=== PATIENT | female | born 1995 | race Caucasian/White ===

== ENCOUNTER 2018-04-09 14:30 | Emergency (ER) | payer SELFPAY ==
[2018-04-09] MEDS ORDERED: MAG HYDROX/AL HYDROX/SIMETH SUSP 30 ML UDCUP PO ONE (14:44)
[2018-04-09] MEDS ORDERED: LIDOCAINE 2% VISCOUS SOLN 20 ML UDCUP PO ONE (14:44)
[2018-04-09] MEDS ORDERED: METOCLOPRAMIDE HCL ORAL SOLN 10 MG/10 ML UDCUP PO ONE (14:44)
--- NOTE | 2018-04-09 14:50 | ER Document Report ---
ED Medical Screen (RME) - General Chief Complaint: Sore Throat Stated Complaint: SORE THROAT Time Seen by Provider: 04/09/18 14:38 TRAVEL OUTSIDE OF THE [place] IN LAST 30 DAYS: No - HPI Notes: 04/09/18 14:45 Patient is a 22-year-old female who presents to the ED complaining of feeling feverish, nasal congestion/discharge, postnasal drip, sore throat 1 day. Patient also reports having pain in her epigastrium when she eats, and intermittent diarrhea over the last several days. Patient states that she did have a dental procedure done about a week ago, but had 2 rounds of clindamycin. Patient states that she did well with her first round of clindamycin, but started having abdominal pain 2 days into her second round so she stopped taking it. Patient states that she has had a significant decrease in p.o. intake and believes that she has been losing weight as well. She did have 1 episode of vomiting previously, but not today. She is otherwise urinating normally. Denies any other significant past medical history. Denies any headache, fever, head injury, neck pain, URI, sore throat, chest pain, palpitations, syncope, cough, shortness of breath, wheeze, dyspnea, urinary retention, dysuria, hematuria, back pain, loss of control of bowel or bladder, numbness/tingling, muscle paralysis/weakness, or rash. I have treated and performed a rapid initial assessment of this patient. A comprehensive ED assessment and evaluation of the patient, analysis of test results and completion of medical decision making process will be conducted by additional ED providers. PHYSICAL EXAMINATION: GENERAL: Well-appearing, well-nourished and in no acute distress. A&Ox4. Answers questions appropriately. Moves comfortably w/o notable distress HEAD: Atraumatic, normocephalic. EYES: Pupils equal round and reactive to light, extraocular movements intact, sclera anicteric, conjunctiva are normal. ENT: oropharynx mild erythema without exudates. 1+ tonsilar hypertrophy without erythema or exudate. No palatine shift. Uvula midline. No tongue protrusion. No drooling, hoarseness, or airway compromise. Moist mucous membranes. No sinus tenderness. NECK: Normal range of motion, supple without lymphadenopathy. No rigidity/ meningismus. LUNGS: Breath sounds clear to auscultation bilaterally and equal. No wheezes rales or rhonchi. No retractions HEART: Regular rate and rhythm without murmurs, rubs, gallops. ABDOMEN: Soft, nondistended abdomen. No guarding, no rebound. No masses appreciated. Normal bowel sounds present. No CVA tenderness bilaterally. + mild epigastric tenderness and tenderness to the mid left abdomen. Aguilar neg. No tenderness at Mc[place]. PSYCH: Normal mood, normal affect. SKIN: Warm, Dry, normal turgor, no rashes or lesions noted. - Related Data Allergies/Adverse Reactions: Penicillins Allergy (Verified 04/09/18 14:31) Past Medical History GI Medical History: Reports: Hx Gastroesophageal Reflux Disease - Immunizations Hx Diphtheria, Pertussis, Tetanus Vaccination: Yes
[2018-04-09 15:26] LABS: APPEARANCE,URINE SLIGHTLY-CLOUDY; BILIRUBIN,URINE NEGATIVE (NEGATIVE); COLOR,URINE YELLOW; GLUCOSE, URINE NEGATIVE (NEGATIVE); KETONES,URINE NEGATIVE (NEGATIVE); LEUKOCYTE ESTERASE,URINE NEGATIVE (NEGATIVE); NITRITE,URINE NEGATIVE (NEGATIVE); PROTEIN,URINE NEGATIVE (NEGATIVE); URINE SPECIFIC GRAVITY 1.025
--- NOTE | 2018-04-09 15:27 | ER Document Report ---
ED General - General Chief Complaint: Sore Throat Stated Complaint: SORE THROAT Time Seen by Provider: 04/09/18 14:38 Mode of Arrival: Ambulatory Information source: Patient TRAVEL OUTSIDE OF THE [place] IN LAST 30 DAYS: No - Related Data Allergies/Adverse Reactions: Penicillins Allergy (Verified 04/09/18 14:31) Past Medical History - Social History Smoking Status: Former Smoker Chew tobacco use (# tins/day): No Frequency of alcohol use: Rare Drug Abuse: None Family History: Reviewed & Not Pertinent Patient has suicidal ideation: No Patient has homicidal ideation: No Renal/ Medical History: Denies: Hx Peritoneal Dialysis GI Medical History: Reports: Hx Gastroesophageal Reflux Disease Past Surgical History: Reports: Hx Oral Surgery - root canal and extranction - Immunizations Hx Diphtheria, Pertussis, Tetanus Vaccination: Yes Course - Laboratory Result Diagrams: 04/09/18 15:00 04/09/18 15:00
[2018-04-09 15:30] LABS: ABSOLUTE EOSINOPHILS # (AUTO) 0.1 10^3/uL (0.0-0.6); ABSOLUTE LYMPHOCYTES (AUTO) 1.3 10^3/uL (0.5-4.7); ABSOLUTE MONOCYTES (AUTO) 0.5 10^3/uL (0.1-1.4); ABSOLUTE NEUT (AUTO) 6.3 10^3/uL (1.7-8.2); BASOPHILS % (AUTO) 0.5 % (0-2); HEMATOCRIT 38.3 % (36.0-47.0); HEMOGLOBIN 12.7 g/dL (12.0-15.5); LYMPHOCYTES % (AUTO) 15.5 % (13-45); MEAN CORPUSCULAR HEMOGLOBIN 28.7 pg (27.0-33.4); MEAN CORPUSCULAR HGB CONC 33.2 g/dL (32.0-36.0); MEAN CORPUSCULAR VOLUME 87 fl (80-97); MONOCYTES % (AUTO) 5.8 % (3-13); PLATELET COUNT 212 10^3/uL (150-450); RED BLOOD COUNT 4.43 10^6/uL (3.72-5.28); RED CELL DISTRIBUTION WIDTH 14.9 % (11.5-14.0); SEGMENTED NEUTROPHILS % (AUTO) 77.2 % (42-78); TOTAL CELLS COUNTED % (AUTO) 100 %; WHITE BLOOD COUNT 8.2 10^3/uL (4.0-10.5)
[2018-04-09] MEDS ORDERED: LANSOPRAZOLE 30 MG TAB.RAP.DR PO ONE (15:38)
[2018-04-09 15:53] LABS: ALANINE AMINOTRANSFERASE 15 U/L (9-52); ALBUMIN 4.6 g/dL (3.5-5.0); ALKALINE PHOSPHATASE 69 U/L (38-126); ANION GAP 14 (5-19); ASPARTATE AMINO TRANSFERASE 16 U/L (14-36); BILIRUBIN,DIRECT 0.3 mg/dL (0.0-0.4); BILIRUBIN,TOTAL 0.3 mg/dL (0.2-1.3); BLOOD UREA NITROGEN 13 mg/dL (7-20); CALCIUM 9.8 mg/dL (8.4-10.2); CARBON DIOXIDE 26 mmol/L (22-30); CHLORIDE 106 mmol/L (98-107); GLUCOSE 120 mg/dL (75-110); LIPASE 33.1 U/L (23-300); SODIUM 145.6 mmol/L (137-145); TOTAL PROTEIN 7.6 g/dL (6.3-8.2)
--- NOTE | 2018-04-09 15:56 | RADIOLOGY REPORT (SQ) ---
EXAM DESCRIPTION: CHEST SINGLE VIEW COMPLETED DATE/TIME: 04/09/2018 3:38 pm REASON FOR STUDY: epigastric pain COMPARISON: 10/13/2015 EXAM PARAMETERS: NUMBER OF VIEWS: One view. TECHNIQUE: Single frontal radiographic view of the chest acquired. RADIATION DOSE: NA LIMITATIONS: None. FINDINGS: LUNGS AND PLEURA: No opacities, masses or pneumothorax. No pleural effusion. MEDIASTINUM AND HILAR STRUCTURES: No masses. Contour normal. HEART AND VASCULAR STRUCTURES: Heart normal in size. Normal vasculature. BONES: No acute findings. HARDWARE: None in the chest. OTHER: No other significant finding. IMPRESSION: NO ACUTE RADIOGRAPHIC FINDING IN THE CHEST. TECHNICAL DOCUMENTATION: JOB ID: [id number] [employer]- All Rights Reserved Reading location - IP/workstation name: [email or web address]
--- NOTE | 2018-04-09 16:14 | ER Document Report ---
ED GI/ - General Chief Complaint: Sore Throat Stated Complaint: SORE THROAT Time Seen by Provider: 04/09/18 14:38 Mode of Arrival: Ambulatory Information source: Patient Notes: 22-year-old female came to the emergency room today because of epigastric left upper quadrant abdominal pain. It hurts when she eats food. She has had some weight loss due to not eating. She is a history of GERD but has recently taken clindamycin for a dental infection and dental procedures. 3 days into the second round of clindamycin she had to stop it. She has had some diarrhea without blood or black in it. No history of Clostridium difficile. No history of gastritis, pancreatitis, cholecystitis, Crohn's, colitis, or diverticulitis. She is on her menses at this time. She also has a mild sore throat and wants to know if she is strep throat. No cough, chest pain or shortness of breath. No rash. TRAVEL OUTSIDE OF THE [place] IN LAST 30 DAYS: No - Related Data Allergies/Adverse Reactions: Penicillins Allergy (Verified 04/09/18 14:31) Past Medical History - General Information source: Patient - Social History Smoking Status: Former Smoker Chew tobacco use (# tins/day): No Frequency of alcohol use: Rare Drug Abuse: None Family History: Reviewed & Not Pertinent Patient has suicidal ideation: No Patient has homicidal ideation: No Renal/ Medical History: Denies: Hx Peritoneal Dialysis GI Medical History: Reports: Hx Gastroesophageal Reflux Disease Past Surgical History: Reports: Hx Oral Surgery - root canal and extranction - Immunizations Hx Diphtheria, Pertussis, Tetanus Vaccination: Yes Review of Systems - Review of Systems Constitutional: No symptoms reported EENT: See HPI Cardiovascular: No symptoms reported Respiratory: No symptoms reported Gastrointestinal: See HPI Genitourinary: No symptoms reported Female Genitourinary: No symptoms reported Musculoskeletal: No symptoms reported Skin: No symptoms reported Hematologic/Lymphatic: No symptoms reported Neurological/Psychological: No symptoms reported Physical Exam - Vital signs Vitals: Temp Pulse Resp BP Pulse Ox 99.4 F 105 H 16 137/97 H 98 04/09/18 14:34 04/09/18 14:34 04/09/18 14:34 04/09/18 14:34 04/09/18 14:34 Interpretation: Normal - General General appearance: Appears well, Alert - HEENT Head: Normocephalic, Atraumatic Eyes: Normal Pupils: PERRL Mucous membranes: Normal Pharynx: Normal Neck: Supple. No: Lymphadenopathy, Thyromegally - Respiratory Respiratory status: No respiratory distress Chest status: Nontender Breath sounds: Normal Chest palpation: Normal - Cardiovascular Rhythm: Regular Heart sounds: Normal auscultation Murmur: No - Abdominal Inspection: Normal Distension: No distension Bowel sounds: Normal Tenderness: Tender - Epigastric left upper quadrant mild Organomegaly: No organomegaly - Back Back: Normal, Nontender. No: CVA tenderness - Extremities General upper extremity: Normal inspection, Nontender, Normal color, Normal ROM , Normal temperature General lower extremity: Normal inspection, Nontender, Normal color, Normal ROM , Normal temperature, Normal weight bearing. No: Chuck's sign - Neurological Neuro grossly intact: Yes Cognition: Normal Orientation: AAOx4 [place] Coma Scale Eye Opening: Spontaneous [place] Coma Scale Verbal: Oriented [place] Coma Scale Motor: Obeys Commands [place] Coma Scale Total: 15 Speech: Normal Motor strength normal: LUE, RUE, LLE, RLE Sensory: Normal - Psychological Associated symptoms: Normal affect, Normal mood - Skin Skin Temperature: Warm Skin Moisture: Dry Skin Color: Normal Skin irregularity: negative: Rash Course - Re-evaluation Re-evalutation: 04/09/18 15:20 The patient is very hungry the GI cocktail relieved all of the symptoms. She is to take Nexium but she has not taken it for several years. 04/09/18 16:15 Labs and CXR are negative. Patient was unable to have a bowel movement here so the C. difficile was not obtained. TSH is pending I will have her call me back for the results 04/09/18 16:15 04/09/18 16:18 Was able to eat food. - Vital Signs Vital signs: Temp Pulse Resp BP Pulse Ox 99.4 F 105 H 16 137/97 H 98 04/09/18 14:34 04/09/18 14:34 04/09/18 14:34 04/09/18 14:34 04/09/18 14:34 - Laboratory Result Diagrams: 04/09/18 15:00 04/09/18 15:00 Laboratory results interpreted by me: 04/09/18 04/09/18 04/09/18 15:00 15:00 15:08 RDW 14.9 H Sodium 145.6 H Glucose 120 H Urine Blood LARGE H Urine Urobilinogen 2.0 H Discharge - Discharge Clinical Impression: Gastritis, Esophagitis, Sore throat Diarrhea Qualifiers: Diarrhea type: unspecified type Qualified Code(s): R19.7 - Diarrhea, unspecified Condition: Good Disposition: HOME, SELF-CARE Instructions: Gastritis ([facility]), Prilosec (Acid Pump Inhibitor) ([facility]) Additional Instructions: tums take the nexium daily no alcohol no motrin no more clindamycin needed to er if worse Copy of all the labs and imaging given to you See the bobbin washer for evaluation Call me in 2 hours for the TSH result at [phone] Prescriptions: Esomeprazole Magnesium [Nexium] 20 mg PO DAILY #30 capsule.dr Forms: Return to Work Referrals: RICHARD RUIZ MD [ACTIVE STAFF] - Follow up as needed
[2018-04-09 16:26] VITALS: BP 111/69
== END 2018-04-09 16:28 | disposition home or self-care (01) ==
LOC: ER 14:30
DX: K29.70 Gastritis, unspecified, without bleeding (principal); K20.9 Esophagitis, unspecified; J02.9 Acute pharyngitis, unspecified; R19.7 Diarrhea, unspecified; R10.13 Epigastric pain; R10.12 Left upper quadrant pain; Z87.891 Personal history of nicotine dependence
CPT/HCPCS: 99283; 36415; 87070; 87880; 83690; 84443; 85025; 81025; 80053; 81001; 71045; J3490

== ENCOUNTER 2018-06-15 16:48 | Emergency (ER) | payer OTHER ==
[2018-06-15 16:54] VITALS: BP 127/92
[2018-06-15] MEDS ORDERED: HYDROCODONE/ACETAMINOPHEN 5-325 MG TABLET PO ONE (18:07)
--- NOTE | 2018-06-15 18:10 | ER Document Report ---
ED Burn/Smoke/Toxic Fumes - General Chief Complaint: Hand Burn Stated Complaint: GREASE BURN Time Seen by Provider: 06/15/18 17:53 Mode of Arrival: Ambulatory Information source: Patient Notes: 22-year-old female presented ED for complaint of second-degree kimble to her right hand. She states she was at work when grease splattered on her hands burning her right hand including most of her fingers worse on the index finger. TRAVEL OUTSIDE OF THE [place] IN LAST 30 DAYS: No - HPI Patient complains to provider of: Burn Onset: Just prior to arrival Where: Work Quality of pain: Burning, Sharp, Throbbing Severity: Severe Pain Level: 5 Context: Hot liquid - Hot grease Associated Symptoms: Other - Second-degree kimble to the right hand to include the fingers. There were no circumferential kimble Other injuries: Other - Right hand - Related Data Allergies/Adverse Reactions: Penicillins Allergy (Verified 06/15/18 16:49) Past Medical History - General Information source: Patient - Social History Smoking Status: Never Smoker Cigarette use (# per day): No Chew tobacco use (# tins/day): No Smoking Education Provided: No Frequency of alcohol use: Rare Drug Abuse: None Lives with: Spouse/Significant other Family History: Reviewed & Not Pertinent Patient has suicidal ideation: No Patient has homicidal ideation: No - Past Medical History Cardiac Medical History: Reports: None Pulmonary Medical History: Reports: None EENT Medical History: Reports: None Neurological Medical History: Reports: None Endocrine Medical History: Reports: None Renal/ Medical History: Reports: None Malignancy Medical History: Reports: None GI Medical History: Reports: Hx Gastroesophageal Reflux Disease Musculoskeletal Medical History: Reports None Skin Medical History: Reports None Psychiatric Medical History: Reports: None Traumatic Medical History: Reports: None Infectious Medical History: Reports: None Past Surgical History: Reports: Hx Oral Surgery - root canal and extranction - Immunizations Hx Diphtheria, Pertussis, Tetanus Vaccination: Yes Review of Systems - Review of Systems Constitutional: No symptoms reported EENT: No symptoms reported Cardiovascular: No symptoms reported Respiratory: No symptoms reported Gastrointestinal: No symptoms reported Genitourinary: No symptoms reported Female Genitourinary: No symptoms reported Musculoskeletal: Other - Kimble to the right hand to include the fingers. Worse burn is on the index finger. Skin: Other - Kimble to the right hand Hematologic/Lymphatic: No symptoms reported Neurological/Psychological: No symptoms reported Physical Exam - Vital signs Vitals: Temp Pulse Resp BP Pulse Ox 98.8 F 104 H 18 127/92 H 99 06/15/18 16:51 06/15/18 16:51 06/15/18 16:51 06/15/18 16:51 06/15/18 16:51 Interpretation: Normal - General General appearance: Appears well, Alert - HEENT Head: Normocephalic, Atraumatic Eyes: Normal Pupils: PERRL - Respiratory Respiratory status: No respiratory distress Chest status: Nontender Breath sounds: Normal Chest palpation: Normal - Cardiovascular Rhythm: Regular Heart sounds: Normal auscultation Murmur: No - Abdominal Inspection: Normal Distension: No distension Bowel sounds: Normal Tenderness: Nontender Organomegaly: No organomegaly - Back Back: Normal, Nontender - Extremities General upper extremity: Normal temperature General lower extremity: Normal inspection, Nontender, Normal color, Normal ROM , Normal temperature, Normal weight bearing. No: Chuck's sign Hand: Tender, No evidence of human bite, No evidence of FB, Swelling, Other - Second-degree kimble to the right hand and second third and fourth finger there are blisters. There are no circumferential kimble. - Neurological Neuro grossly intact: Yes Cognition: Normal Orientation: AAOx4 [place] Coma Scale Eye Opening: Spontaneous [place] Coma Scale Verbal: Oriented Manisha Coma Scale Motor: Obeys Commands [place] Coma Scale Total: 15 Speech: Normal Motor strength normal: LUE, RUE, LLE, RLE Sensory: Normal - Psychological Associated symptoms: Normal affect, Normal mood - Skin Skin Temperature: Warm Skin Moisture: Dry Skin Color: Normal Location of irregularity: Extremities - Kimble to the right hand worse on the index finger but has kimble when second third and fourth finger. There are blisters on the second and fourth finger. There are no circumferential kimble. Course - Re-evaluation Re-evalutation: 06/15/18 20:53 Dr. Perez consulted for this second-degree burn to the right hand. He stated patient could be discharged home with Silvadene cream and dressings. Patient was ordered Silvadene cream for her right hand with dressings and narcotics. Patient had been given instructions on range of motion for the index finger due to the extent of the injury to her index finger. Patient was instructed to use her narcotics and then to do range of motion is to the finger. Dr. English reviewed exercises for the finger with her to ensure that she was able to do the exercises. Patient was instructed to return to the ED for any increase in pain inflammation or swelling or any other concerns. - Vital Signs Vital signs: Temp Pulse Resp BP Pulse Ox 98.8 F 104 H 18 127/92 H 99 06/15/18 16:51 06/15/18 16:51 06/15/18 16:51 06/15/18 16:51 06/15/18 16:51 Discharge - Discharge Clinical Impression: grease burn to right hand 2nd degree Condition: Stable Disposition: HOME, SELF-CARE Instructions: Family Physicians / Practices, Use of Pbiu-Vsy-Vxhlgne Ibuprofen ([facility]) Additional Instructions: Kimble The seriousness of a burn is not always obvious at first. Delayed tissue damage and secondary infection may occur despite proper treatment. Proper care is very important. A burn that is third-degree may need skin grafting. Most kimble, however, are simply protected with dressings until healed. Keep the burn clean. If the dressing gets wet, remove it and blot the wound dry, then apply a fresh dressing. Dressings should be changed at least once daily. Soaks to remove crusting are usually started in about two days. Kimble in certain areas require stretching to prevent disabling tightness. Your doctor will advise you about this. For pain control, you may frequently apply a hand towel that has been dipped in water with ice cubes. Do not apply ice directly to the burned areas. If any signs of infection occur (swelling, redness, increasing tenderness, red streaks, tender lumps in the armpit or groin above the burn, or fever), contact the doctor immediately. Silvadene Cream Silvadene is very effective against the germs that cause infection within the skin. It is used to prevent infection in burn injuries. Apply the medicine once or twice a day, as prescribed, for one week, or longer if your doctor has advised it. Stop the medicine and call your doctor if you develop large blisters, severe itching, increasing pain, swelling, fever, or spreading redness. Oral Narcotic Medication You have been given a prescription for pain control. This medication is a narcotic. It's best taken with food, as nausea can result if taken on an empty stomach. Don't operate machinery or drive within six hours of taking this medication. Do not combine this medicine with alcohol, or with any medication which can cause sedation (such as cold tablets or sleeping pills) unless you get permission from the physician. Narcotics tend to cause constipation. If possible, drink plenty of fluids and eat a diet high in fiber and fruits. FOLLOW-UP CARE: If you have been referred to a physician for follow-up care, call the physician s office for an appointment as you were instructed or within the next two days. If you experience worsening or a significant change in your symptoms, notify the physician immediately or return to the Emergency Department at any time for re-evaluation. Please return to the ED in 48-72 hours to have the hand reexamined to ensure that it is improving or sooner for any increase in pain inflammation or signs or symptoms of infection to include fever. Do not pop the blisters or your hand. Prescriptions: Hydrocodone/Acetaminophen [[place] 5-325 mg Tablet] 1 tab PO Q6HP PRN #12 tablet PRN Reason: For Pain Scale 3-5 Forms: Elevated Blood Pressure, Return to Work
[2018-06-15] MEDS ORDERED: SILVER SULFADIAZINE 1% CREAM 400 GM TP ONE (18:30)
[2018-06-16] MEDS ORDERED: SILVER SULFADIAZINE 1% CREAM 400 GM TP ONE (18:06)
== END 2018-06-15 18:46 | disposition home or self-care (01) ==
LOC: ER 16:48
DX: T23.231A Burn of second degree of multiple right fingers (nail), not including thumb, initial encounter (principal); X12.XXXA Contact with other hot fluids, initial encounter; Y99.0 Civilian activity done for income or pay; Z88.0 Allergy status to penicillin
CPT/HCPCS: 99283

== ENCOUNTER 2018-06-18 12:22 | Emergency (ER) | payer OTHER ==
--- NOTE | 2018-06-18 13:12 | ER Document Report ---
ED Suture/Wound Recheck - General Chief Complaint: Burn Recheck Stated Complaint: WOUND RECHECK Time Seen by Provider: 06/18/18 13:05 Notes: Patient is a 22-year-old healthy female here for a recheck of a burn to her right hand. Patient burned her hand and hot grease at work 3 days ago. Patient has been changing her Silvadene dressings as instructed. Complains of fingers are swollen and difficult to bend but otherwise doing well. TRAVEL OUTSIDE OF THE [place] IN LAST 30 DAYS: No - HPI Treated in ED (days ago): 3 Previous ED treatment: Burn dressing Quality of pain: Achy Context: Work related Symptoms since procedure: No complaints Exacerbated by: Movement Relieved by: Denies - Related Data Allergies/Adverse Reactions: Penicillins Allergy (Verified 06/18/18 12:25) Past Medical History - General Information source: Patient - Social History Smoking Status: Current Every Day Smoker Frequency of alcohol use: None Drug Abuse: None Lives with: Family Family History: Reviewed & Not Pertinent - Medical History Medical History: Negative Renal/ Medical History: Denies: Hx Peritoneal Dialysis GI Medical History: Reports: Hx Gastroesophageal Reflux Disease Past Surgical History: Reports: Hx Oral Surgery - root canal and extranction - Immunizations Hx Diphtheria, Pertussis, Tetanus Vaccination: Yes Review of Systems - Review of Systems Constitutional: No symptoms reported EENT: No symptoms reported Cardiovascular: No symptoms reported Respiratory: No symptoms reported Gastrointestinal: No symptoms reported Genitourinary: No symptoms reported Female Genitourinary: No symptoms reported Musculoskeletal: No symptoms reported Skin: See HPI Hematologic/Lymphatic: No symptoms reported Neurological/Psychological: No symptoms reported Physical Exam - Vital signs Interpretation: Normal - General General appearance: Appears well, Alert - HEENT Head: Normocephalic, Atraumatic Eyes: Normal Pupils: PERRL - Respiratory Respiratory status: No respiratory distress Chest status: Nontender Breath sounds: Normal Chest palpation: Normal - Cardiovascular Rhythm: Regular Heart sounds: Normal auscultation Murmur: No - Abdominal Inspection: Normal Distension: No distension Bowel sounds: Normal Tenderness: Nontender Organomegaly: No organomegaly - Back Back: Normal, Nontender - Extremities General upper extremity: Normal inspection, Nontender, Normal color, Normal ROM , Normal temperature General lower extremity: Normal inspection, Nontender, Normal color, Normal ROM , Normal temperature, Normal weight bearing. No: Chuck's sign - Neurological Neuro grossly intact: Yes Cognition: Normal Orientation: AAOx4 [place]isha Coma Scale Eye Opening: Spontaneous [place]isha Coma Scale Verbal: Oriented [place] Coma Scale Motor: Obeys Commands Manisha Coma Scale Total: 15 Speech: Normal Motor strength normal: LUE, RUE, LLE, RLE Sensory: Normal - Psychological Associated symptoms: Normal affect, Normal mood - Skin Skin Temperature: Warm Skin Moisture: Dry Skin Color: Erythema - Erythema to right dorsal hand. Patient has a blister to right dorsal thumb over PIP, right dorsal middle finger and right dorsal ring finger. No signs of infection Discharge - Discharge Clinical Impression: Second degree burn of right hand Qualifiers: Encounter type: subsequent encounter Burn of hand location: multiple fingers excluding thumb Qualified Code(s): T23.231D - Burn of second degree of multiple right fingers (nail), not including thumb, subsequent encounter Condition: Stable Disposition: HOME, SELF-CARE Instructions: [place] ([facility]), Silvadene Cream ([facility]), Soap Cleansing ([facility]) Additional Instructions: [place]'s daily with antibacterial soap and water Change Silvadene dressing after each cleaning Try to keep blisters intact for as long as possible If blisters pop, do not remove the skin Follow-up with your employer's Worker's [employer]. provider for further evaluation and treatment
== END 2018-06-18 14:05 | disposition home or self-care (01) ==
LOC: ER 12:22
DX: T23.241D Burn of second degree of multiple right fingers (nail), including thumb, subsequent encounter (principal); X12.XXXD Contact with other hot fluids, subsequent encounter; F17.200 Nicotine dependence, unspecified, uncomplicated
CPT/HCPCS: 99282

== ENCOUNTER 2019-02-18 11:26 | Emergency (ER) | payer SELFPAY ==
[2019-02-18] MEDS ORDERED: NORMAL SALINE 1000 ML 1,000 ML IV ONE ×2 (12:08→16:34)
--- NOTE | 2019-02-18 12:08 | ER Document Report ---
ED Medical Screen (RME) - General Chief Complaint: Abdominal Pain Stated Complaint: ABDOMINAL PAIN Time Seen by Provider: 02/18/19 11:59 Mode of Arrival: Ambulatory Information source: Patient TRAVEL OUTSIDE OF THE [place] IN LAST 30 DAYS: No - HPI Patient complains to provider of: jimmie gonzalez Notes: 02/18/19 12:07 Patient here with complaints of left-sided abdominal pain. The patient states that she has had pain for about 1 week. She has had diarrhea and noticed some mucus in her stool that was dark today. No obvious blood in her stool. No nausea vomiting. No fever. No dysuria. She was on Zithromax a few weeks ago. No recent travel. No known sick contacts. No chronic abdominal disease, no known sick contacts. Exam Nontoxic, no distress. Lungs clear and equal. Heart sounds normal. Tenderness to palpation with guarding to the left upper and mid abdomen on limited triage abdominal exam. No CVA tenderness. Plan CBC, CMP, lipase, urine, urine , stool culture, C. difficile due to recent antibiotic use. Saline lock. CT abdomen pelvis with IV contrast. Patient declined needing pain medication at this time. An initial examination was made on the patient as part of the triage process, and it was determined a more comprehensive evaluation was necessary. Initial labs were ordered and patient was transferred to another provider in the ED who assumed care and finished evaluation and plan. - Related Data Allergies/Adverse Reactions: Penicillins Allergy (Verified 02/18/19 11:28) Past Medical History - Social History Chew tobacco use (# tins/day): No Frequency of alcohol use: None Drug Abuse: None Renal/ Medical History: Denies: Hx Peritoneal Dialysis GI Medical History: Reports: Hx Gastroesophageal Reflux Disease Past Surgical History: Reports: Hx Oral Surgery - root canal and extranction - Immunizations Hx Diphtheria, Pertussis, Tetanus Vaccination: Yes Physical Exam - Vital signs Vitals: Temp Pulse Resp BP Pulse Ox 98.4 F 107 H 14 133/80 H 98 02/18/19 11:31 02/18/19 11:31 02/18/19 11:31 02/18/19 11:31 02/18/19 11:31 Course - Vital Signs Vital signs: Temp Pulse Resp BP Pulse Ox 98.4 F 107 H 14 133/80 H 98 02/18/19 11:31 02/18/19 11:31 02/18/19 11:31 02/18/19 11:31 02/18/19 11:31
[2019-02-18 13:39] LABS: ABSOLUTE MONOCYTES (AUTO) 0.3 10^3/uL (0.1-1.4); ABSOLUTE NEUT (AUTO) 4.2 10^3/uL (1.7-8.2); BASOPHILS % (AUTO) 0.8 % (0-2); EOSINOPHILS % (AUTO) 0.2 % (0-6); HEMATOCRIT 38.9 % (36.0-47.0); LYMPHOCYTES % (AUTO) 17.9 % (13-45); MEAN CORPUSCULAR HEMOGLOBIN 29.6 pg (27.0-33.4); MEAN CORPUSCULAR HGB CONC 33.4 g/dL (32.0-36.0); MEAN CORPUSCULAR VOLUME 89 fl (80-97); PLATELET COUNT 225 10^3/uL (150-450); RED BLOOD COUNT 4.39 10^6/uL (3.72-5.28); RED CELL DISTRIBUTION WIDTH 15.6 % (11.5-14.0); SEGMENTED NEUTROPHILS % (AUTO) 75.1 % (42-78); TOTAL CELLS COUNTED % (AUTO) 100 %; WHITE BLOOD COUNT 5.6 10^3/uL (4.0-10.5)
[2019-02-18 13:48] LABS: APPEARANCE,URINE SLIGHTLY-CLOUDY; BILIRUBIN,URINE NEGATIVE (NEGATIVE); COLOR,URINE YELLOW; GLUCOSE, URINE NEGATIVE (NEGATIVE); KETONES,URINE 80 mg/dL (NEGATIVE); LEUKOCYTE ESTERASE,URINE NEGATIVE (NEGATIVE); NITRITE,URINE NEGATIVE (NEGATIVE); PROTEIN,URINE NEGATIVE (NEGATIVE); URINE SPECIFIC GRAVITY 1.026; UROBILINOGEN,URINE NEGATIVE mg/dL (<2.0)
[2019-02-18 13:57] LABS: ALANINE AMINOTRANSFERASE 20 U/L (9-52); ALBUMIN 4.7 g/dL (3.5-5.0); ALKALINE PHOSPHATASE 61 U/L (38-126); ANION GAP 11 (5-19); ASPARTATE AMINO TRANSFERASE 15 U/L (14-36); BILIRUBIN,DIRECT 0.2 mg/dL (0.0-0.4); BILIRUBIN,TOTAL 0.9 mg/dL (0.2-1.3); BLOOD UREA NITROGEN 13 mg/dL (7-20); CALCIUM 9.9 mg/dL (8.4-10.2); CARBON DIOXIDE 27 mmol/L (22-30); CHLORIDE 102 mmol/L (98-107); GLUCOSE 79 mg/dL (75-110); LIPASE 33.3 U/L (23-300); POTASSIUM 4.1 mmol/L (3.6-5.0); SODIUM 140.1 mmol/L (137-145); TOTAL PROTEIN 7.8 g/dL (6.3-8.2)
--- NOTE | 2019-02-18 14:54 | ER Document Report ---
ED GI/ - General Chief Complaint: Abdominal Pain Stated Complaint: ABDOMINAL PAIN Time Seen by Provider: 02/18/19 11:59 Primary Care Provider: [facility] [Provider Group] - Follow up as needed Mode of Arrival: Ambulatory Information source: Patient Notes: 23-year-old female presented to ED for left-sided abdominal pain. She states she has had this pain for about a week. She states she has had diarrhea with mucus in it and the stools are dark today. She states she took Pepto-Bismol yesterday which would make her stools dark. She states she has not had any nausea or vomiting fever or pain or discomfort with urination. She states she was on Zithromax a couple weeks ago but has no other chronic problems. Patient is alert oriented respirations regular and unlabored speaking in full sentences walks with a gait. Patient states she is only had one stool today TRAVEL OUTSIDE OF THE [place] IN LAST 30 DAYS: No - HPI Patient complains to provider of: Abdominal pain - Left lower quadrant Onset: Last week Timing/Duration: Intermittent Quality of pain: Achy, Sharp Severity at maximum: Moderate Severity in ED: Moderate Pain Level: 4 Location: LLQ, Pelvis - Left Vaginal bleeding (Compared to normal period): None Associated symptoms: Diarrhea - Dark stools today he took Kaopectate yesterday he one stool today, Other. denies: Constipation, Nausea, Vomiting Exacerbated by: Movement Relieved by: Denies Similar symptoms previously: No Recently seen / treated by doctor: No - Related Data Allergies/Adverse Reactions: Penicillins Allergy (Verified 02/18/19 11:28) Past Medical History - General Information source: Patient - Social History Smoking Status: Former Smoker Cigarette use (# per day): No Chew tobacco use (# tins/day): No Smoking Education Provided: No Frequency of alcohol use: Rare Drug Abuse: None Occupation: [employer] Family History: Reviewed & Not Pertinent Patient has suicidal ideation: No Patient has homicidal ideation: No - Past Medical History Cardiac Medical History: Reports: None Pulmonary Medical History: Reports: None EENT Medical History: Reports: None Neurological Medical History: Reports: None Endocrine Medical History: Reports: None Renal/ Medical History: Reports: None Malignancy Medical History: Reports: None GI Medical History: Reports: Hx Gastroesophageal Reflux Disease Musculoskeletal Medical History: Reports None Skin Medical History: Reports None Psychiatric Medical History: Reports: None Traumatic Medical History: Reports: None Infectious Medical History: Reports: None Surgical Hx: Negative Past Surgical History: Reports: None - Immunizations Hx Diphtheria, Pertussis, Tetanus Vaccination: No Review of Systems - Review of Systems Constitutional: No symptoms reported EENT: No symptoms reported Cardiovascular: No symptoms reported Respiratory: No symptoms reported Gastrointestinal: Abdominal pain - Left lower quadrant, Diarrhea - Times a week but only one stool today which was dark after taking Pepto-Bismol Genitourinary: No symptoms reported Female Genitourinary: Other - Left pelvic pain Musculoskeletal: No symptoms reported Skin: No symptoms reported Hematologic/Lymphatic: No symptoms reported Neurological/Psychological: No symptoms reported -: Yes All other systems reviewed and negative Physical Exam - Vital signs Vitals: Temp Pulse Resp BP Pulse Ox 98.4 F 107 H 14 133/80 H 98 02/18/19 11:31 02/18/19 11:31 02/18/19 11:31 02/18/19 11:31 02/18/19 11:31 Interpretation: Normal - General General appearance: Appears well, Alert - HEENT Head: Normocephalic, Atraumatic Eyes: Normal Pupils: PERRL - Respiratory Respiratory status: No respiratory distress Chest status: Nontender Breath sounds: Normal Chest palpation: Normal - Cardiovascular Rhythm: Regular Heart sounds: Normal auscultation Murmur: No - Abdominal Inspection: Normal Distension: No distension Bowel sounds: Normal Tenderness: Tender - Left pelvic Organomegaly: No organomegaly - Back Back: Normal, Nontender - Extremities General upper extremity: Normal inspection, Nontender, Normal color, Normal ROM, Normal temperature General lower extremity: Normal inspection, Nontender, Normal color, Normal ROM, Normal temperature, Normal weight bearing. No: Chuck's sign - Neurological Neuro grossly intact: Yes Cognition: Normal Orientation: AAOx4 Manisha Coma Scale Eye Opening: Spontaneous Manisha Coma Scale Verbal: Oriented [place] Coma Scale Motor: Obeys Commands Manisha Coma Scale Total: 15 Speech: Normal Motor strength normal: LUE, RUE, LLE, RLE Sensory: Normal - Psychological Associated symptoms: Normal affect, Normal mood - Skin Skin Temperature: Warm Skin Moisture: Dry Skin Color: Normal Course - Re-evaluation Re-evalutation: 02/19/19 01:30 Discussed labs and ultrasound with patient and written report of labs and ultras ound as well as CT given to patient. Patient instructed to follow-up with primary care doctor and women's health if she continues to have symptoms. Patient verbalized understanding and agreement with treatment plan and patient was discharged home - Vital Signs Vital signs: Temp Pulse Resp BP Pulse Ox 98.3 F 90 18 109/66 98 02/18/19 19:26 02/18/19 19:26 02/18/19 19:26 02/18/19 19:26 02/18/19 19:26 - Laboratory Result Diagrams: 02/18/19 13:17 02/18/19 13:17 Laboratory results interpreted by me: 02/18/19 02/18/19 13:17 13:17 RDW 15.6 H Urine Ketones 80 H - Diagnostic Test Radiology reviewed: Image reviewed, Reports reviewed Discharge - Discharge Clinical Impression: Pelvic pain Condition: Stable Disposition: HOME, SELF-CARE Instructions: Family Physicians / Practices Additional Instructions: PELVIC PAIN: There are many causes of pain in the pelvic area. The cause could be the tubes, ovaries, uterus, intestines, appendix, pelvic muscles and connective tissue, or the urinary tract. The cause of your pelvic pain is not clear. However, it seems safe to treat you outside the hospital. If the pain sounds like a temporary problem, we sometimes wait to see if it goes away. Other patients may need additional tests, such as pelvic ultrasound or cultures. Conditions may change. Call us or come back for reexamination if any problems occur, such as: (1) Pain that becomes more severe, steady, or becomes concentrated in one specific area. Also, pain that is more severe with movement or coughing. (2) Vomiting that persists or becomes more frequent. (3) Blood in the vomitus, urine, or bowel movements. Blood in the stool may have a tarry or black appearance. (4) Shaking chills or fever greater than 100 degrees. (5) The abdomen becomes more distended or swollen. (6) Bowel movements cease. (7) Heavy vaginal bleeding. Ovarian Cyst Your examination shows the possible presence of an ovarian cyst. This is a ball of fluid attached to the ovary. Ovarian cysts in women of child-bearing age are usually innocent. However, the cyst may cause pain when it grows or bursts. An innocent ovarian cyst will usually go away by itself. When the cyst becomes painful, you should rest. Pain medication may be required. Some women find a hot water bottle soothing. The pain usually resolves within one or two days. After menopause, an ovarian cyst may mean a tumor, and requires more aggressive evaluation -- usually surgery is recommended to remove or biopsy the cyst. A very large cyst requires evaluation at any age. Most cysts (even the innocent ones) require follow-up examination. Call the doctor or return at any time if the pain increases significantly, if you become faint, or if you experience vaginal bleeding. FOLLOW-UP CARE: If you have been referred to a physician for follow-up care, call the physicians office for an appointment as you were instructed or within the next two days. If you experience worsening or a significant change in your symptoms, notify the physician immediately or return to the Emergency Department at any time for re-evaluation. Forms: Return to Work Referrals: [facility] [Provider Group] - Follow up as needed
--- NOTE | 2019-02-18 15:10 | RADIOLOGY REPORT (SQ) ---
EXAM DESCRIPTION: CT ABD/PELVIS WITH IV ONLY COMPLETED DATE/TIME: 02/18/2019 2:45 pm REASON FOR STUDY: left abdo pain, diarrhea COMPARISON: None. TECHNIQUE: CT scan of the abdomen and pelvis performed using helical scanning technique with dynamic intravenous contrast injection. No oral contrast. Images reviewed with lung, soft tissue, and bone windows. Reconstructed coronal and sagittal MPR images reviewed. Delayed images for evaluation of the urinary system also acquired. All images stored on PACS. All CT scanners at this facility use dose modulation, iterative reconstruction, and/or weight based d osing when appropriate to reduce radiation dose to as low as reasonably achievable (ALARA). [facility]: Dose Right [facility]: CareDose [facility]: Dose Right [facility]: Teradose 4D [facility]: EduKart CONTRAST TYPE AND DOSE: contrast/concentration: Isovue 350.00 mg/ml; Total Contrast Delivered: 54.0 ml; Total Saline Delivered: 65.0 ml RENAL FUNCTION: Creatinine 0.6 RADIATION DOSE: CT Rad equipment meets quality standard of care and radiation dose reduction techniq ues were employed. CTDIvol: 4.8 - 5.0 mGy. DLP: 486 mGy-cm.. LIMITATIONS: None. FINDINGS: LOWER CHEST: No significant findings. No nodules or infiltrates. LIVER: Normal size. No masses. No dilated ducts. SPLEEN: Normal size. No focal lesions. PANCREAS: No masses. No significant calcifications. No adjacent inflammation or peripancreatic fluid collections. Pancreatic duct not dilated. GALLBLADDER: No identified stones by CT criteria. No inflammatory changes to suggest cholecystitis. ADRENAL GLANDS: No significant masses or asymmetry. RIGHT KIDNEY AND URETER: No solid masses. No significant calcifications. No hydronephrosis or hyd roureter. LEFT KIDNEY AND URETER: No solid masses. No significant calcifications. No hydronephrosis or hydr oureter. AORTA AND VESSELS: No aneurysm. No dissection. Renal arteries, SMA, celiac without stenosis. RETROPERITONEUM: No retroperitoneal adenopathy, hemorrhage or masses. BOWEL AND PERITONEAL CAVITY: No masses or inflammatory changes. No free fluid or peritoneal masses. APPENDIX: Normal. Best shown in the presacral fat on axial images 52-60, coronal image 29-30 and sag ittal images 36-39. PELVIS: Normal size female pelvic organs. Moderate cul-de-sac free fluid. Bladder, rectum unremarka ble ABDOMINAL WALL: No masses. No hernias. BONES: No significant or acute findings. OTHER: No other significant finding. IMPRESSION: Moderate free pelvic fluid. Normal appendix TECHNICAL DOCUMENTATION: JOB ID: [id number] Quality ID # [id number]: Final reports with documentation of one or more dose reduction techniques (e.g., Au tomated exposure control, adjustment of the mA and/or kV according to patient size, use of iterative reconstruction technique) 2010 [employer]- All Rights Reserved Reading location - IP/workstation name: [email or web address]
--- NOTE | 2019-02-18 19:09 | RADIOLOGY REPORT (SQ) ---
EXAM DESCRIPTION: U/S NON OB PEL W/DOPPLER COMPLETED DATE/TIME: 02/18/2019 5:56 pm REASON FOR STUDY: left pelvic pain COMPARISON: None. TECHNIQUE: Dynamic and static grayscale images acquired of the pelvis via transabdominal approach an d recorded on PACS. Additional selected color Doppler and spectral images recorded. LIMITATIONS: None. FINDINGS: UTERUS: Retroflexed. ENDOMETRIAL STRIPE: No focal or generalized thickening. No masses. CERVIX: No nabothian cysts. RIGHT OVARY AND DOPPLER: Normal size. No worrisome masses. Normal arterial vascular flow without evid ence for torsion. LEFT OVARY AND DOPPLER: Normal size. No worrisome masses. Normal arterial vascular flow without evide nce for torsion. FREE FLUID: Mild cul-de-sac free fluid. OTHER: No other significant finding. MEASUREMENTS: UTERUS: 8 x 4 x 5 cm ENDOMETRIAL STRIPE: 1.3 cm RIGHT OVARY: 2.2 x 2.1 x 2.0 cm LEFT OVARY: 2.9 x 2.6 x 1.9 cm IMPRESSION: Retroflexed uterus. Age-appropriate exam. TECHNICAL DOCUMENTATION: JOB ID: [id number] [place]-72 2010 [employer]- All Rights Reserved Rev-03/16 Reading location - IP/workstation name: [email or web address]
[2019-02-18 19:29] VITALS: BP 109/66
== END 2019-02-18 19:29 | disposition home or self-care (01) ==
LOC: ER 11:26
DX: R10.2 Pelvic and perineal pain (principal); R10.32 Left lower quadrant pain; R19.7 Diarrhea, unspecified; Z88.0 Allergy status to penicillin
CPT/HCPCS: 99284; 96360; 96361; 36415; 84702; 83690; 85025; 80053; 81001; 76856; 93976; 74177; J7030

== ENCOUNTER 2020-02-14 11:00 | Emergency (ER) | payer OTHER ==
[2020-02-14 11:10] VITALS: BP 143/85
[2020-02-14] MEDS ORDERED: DIPH/PERTUSS(ACELL)/TETANUS VAC/PF 0.5 ML SYR (>=10YO) IM ONE (11:27)
[2020-02-14] MEDS ORDERED: CEPHALEXIN 500 MG CAPSULE PO ONE (11:27)
--- NOTE | 2020-02-14 11:56 | ER Document Report ---
ED Hand/Wrist Injury - General Chief Complaint: Finger Injury Stated Complaint: FINGER LACERATION Time Seen by Provider: 02/14/20 11:25 Primary Care Provider: DASHA MORGAN FNP-C [Primary Care Provider] - Follow up as needed Mode of Arrival: Ambulatory Information source: Patient Notes: 24-year-old female presents to ED for a an avulsion to the left middle finger. 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 States she does not know when her last tetanus vaccination was. Received tetanus vaccination while in the emergency room. TRAVEL OUTSIDE OF THE [place] 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[employer] Lives with: Family Family History: Reviewed & Not Pertinent Patient has suicidal ideation: No Patient has homicidal ideation: No - Past Medical History Cardiac Medical History: Reports: None Pulmonary Medical History: Reports: None EENT Medical History: Reports: None Neurological Medical History: Reports: None Endocrine Medical History: Reports: None Renal/ Medical History: Reports: None Malignancy Medical History: Reports: None GI Medical History: Reports: Hx Gastroesophageal Reflux Disease Musculoskeletal Medical History: Reports None Skin Medical History: Reports None Psychiatric Medical History: Reports: None Traumatic Medical History: Reports: None Infectious Medical History: Reports: None Past Surgical History: Reports: Hx Oral Surgery - root canal and extranction - Immunizations Immunizations up to date: Yes Hx Diphtheria, Pertussis, Tetanus Vaccination: Yes - 02/14/2020 Review of Systems - Review of Systems Constitutional: No symptoms reported EENT: No symptoms reported Cardiovascular: No symptoms reported Respiratory: No symptoms reported Gastrointestinal: No symptoms reported Genitourinary: No symptoms reported Female Genitourinary: No symptoms reported Musculoskeletal: No symptoms reported Skin: Other - Skin avulsion left middle finger Hematologic/Lymphatic: No symptoms reported Neurological/Psychological: No symptoms reported Physical Exam - Vital signs Vitals: Temp Pulse Resp BP Pulse Ox 98.7 F 99 14 143/85 H 99 02/14/20 11:07 02/14/20 11:07 02/14/20 11:07 02/14/20 11:07 02/14/20 11:07 Interpretation: Normal - General General appearance: Appears well, Alert - HEENT Head: Normocephalic, Atraumatic Eyes: Normal Pupils: PERRL - Respiratory Respiratory status: No respiratory distress Chest status: Nontender Breath sounds: Normal Chest palpation: Normal - Cardiovascular Rhythm: Regular Heart sounds: Normal auscultation Murmur: No - Abdominal Inspection: Normal Distension: No distension Bowel sounds: Normal Tenderness: Nontender Organomegaly: No organomegaly - Back Back: Normal, Nontender - Extremities General upper extremity: Normal inspection, Nontender, Normal color, Normal ROM, Normal temperature General lower extremity: Normal inspection, Nontender, Normal color, Normal ROM, Normal temperature, Normal weight bearing. No: Chuck's sign - Neurological Neuro grossly intact: Yes Cognition: Normal Orientation: AAOx4 Manisha Coma Scale Eye Opening: Spontaneous [place] Coma Scale Verbal: Oriented Manisha Coma Scale Motor: Obeys Commands Manisha Coma Scale Total: 15 Speech: Normal Motor strength normal: LUE, RUE, LLE, RLE Sensory: Normal - Psychological Associated symptoms: Normal affect, Normal mood - Skin Skin Temperature: Warm Skin Moisture: Dry Skin Color: Normal Location of irregularity: Extremities - Skin avulsion tip of left middle finger Course - Re-evaluation Re-evalutation: 02/14/20 12:00 Left middle finger was cleaned well with Shur-Clens rinsed with saline bacitracin Xeroform Telfa and gauze applied. Patient was instructed on cleaning and dressing her left middle finger wound. She was also given Tdap as she states she does not remember when her last one was. She is alert oriented she tolerated treatment well. She was discharged home with prescription for Keflex as well as receiving a Keflex in the emergency room. - Vital Signs Vital signs: Temp Pulse Resp BP Pulse Ox 98.7 F 99 14 143/85 H 99 02/14/20 11:07 02/14/20 11:07 02/14/20 11:07 02/14/20 11:07 02/14/20 11:07 Discharge - Discharge Clinical Impression: Avulsion injury left middle finger Condition: Stable Disposition: HOME, SELF-CARE Additional Instructions: Avulsion Injury You have an avulsion injury -- a loss of skin which can't be helped by suturing. When large, these injuries can require skin grafting. Smaller defects or shallow avulsions usually heal well with dressings. Keep the dressing clean and dry. If the bandage becomes wet, remove it, bl ot the area dry, and apply a fresh dressing. Change the dressings every day. Complete healing may take anywhere from 10 days to two months. The healing time depends on the size and depth of the avulsion and on the amount of crushing of underlying tissues. Re-examination by the physician is often necessary. If any signs of infection occur (swelling, redness, increasing tenderness, red streaks, profuse purulent drainage from the avulsion, tender lumps in the armpit or groin above the avulsion, or fever), see your doctor immediately. Elevate the Injury Because of the nature of your injury, elevation will be helpful to reduce swelling. This also reduces infection risk in wounds. Keep the injury up above the level of your heart for at least the next 48 hours (or longer if the physician recommends it). SOAP CLEANSING: Gently wash the wound daily using a mild soap (like Ivory, Phisoderm, Neutrogena). Use warm water, rubbing gently until all debris, ooze, and crusting have been washed from the wound. Allow to dry briefly (about 10 minutes) after cleaning. Repeat this cleansing at least three times a day for the first two days and then once or twice a day. ANTIBIOTIC OINTMENT PROTECTION: Your wounds are such that dressing them is not practical or optional. After cleansing, you should apply a thin coating of antibiotic ointment (Bacitracin, not Neosporin) to the wounds at least three times daily. This lessens infection risk, and may decrease the amount of scarring. Use a q-tip or dull butter knife, not your finger, to apply this ointment. Any debris or ooze which builds up in the ointment should be gently rubbed off with a sterile gauze pad. Harder crusting may need to be gently scrubbed off with a clean wash cloth with soap and warm water, perhaps applying a warm, wet wash cloth to the wound for ten minutes first. Development of redness, severe itching, or blistering may mean allergy to the ointment. See the doctor. TETANUS IMMUNIZATION GIVEN: You have been given an immunization against tetanus. Please record this in your records. In general, a booster is needed only once every 10 years. The tetanus shot protects against tetanus or "lockjaw," which is a complication of certain wound infections (the tetanus shot cannot protect against the actual infection). The immunization site may become warm and red due to local reaction. If this occurs, apply warm compresses and take aspirin or ibuprofen to reduce inflammation and discomfort. Return for evaluation if the reaction becomes severe. Cephalexin The antibiotic you've been prescribed is a member of the cephalosporin class. This type of antibiotic covers a wide variety of infections, including those of the skin, lungs, and urinary tract. It's useful for staph infections. This antibiotic is slightly similar to the penicillin family. In rare cases, a person who is allergic to penicillin will also be allergic to this medication. If you have had a severe allergic reaction to penicillin, and have not taken this antibiotic since that time, notify your doctor. Antibiotics which cover many germs ("broad spectrum" antibiotics) are more likely to cause diarrhea or "yeast" infections. Women prone to vaginal yeast problems may suffer an attack after taking this antibiotic. In infants, oral thrush (white spots "stuck" on the cheek) or yeast diaper rash may result. See your doctor if these problems occur. Call at once if you develop itching, hives, shortness of breath, or lightheadedness. FOLLOW-UP CARE: If you have been referred to a physician for follow-up care, call the physicians office for an appointment as you were instructed or within the next two days. If you experience worsening or a significant change in your symptoms, notify the physician immediately or return to the Emergency Department at any time for re-evaluation. Prescriptions: Cephalexin Monohydrate [Keflex 500 mg Capsule] 500 mg PO Q6H 5 Days #20 capsule Forms: Elevated Blood Pressure, Return to Work, Special Work Note Referrals: DASHA MORGAN FNP-C [Primary Care Provider] - Follow up as needed
== END 2020-02-14 12:12 | disposition home or self-care (01) ==
LOC: ER 11:00
DX: S61.213A Laceration without foreign body of left middle finger without damage to nail, initial encounter (principal); X58.XXXA Exposure to other specified factors, initial encounter; Y93.G2 Activity, grilling and smoking food; Y99.0 Civilian activity done for income or pay; Z88.0 Allergy status to penicillin; Z23 Encounter for immunization
CPT/HCPCS: 90471; 90715; 99282